=== PATIENT | male | born 1980 | race Caucasian/White ===

== ENCOUNTER 2023-05-28 07:36 | Day surgery (SDC) | payer OTHER, SELFPAY ==
[2022-12-12 10:57] VITALS: BMI 27.2
[2023-01-24 08:32] VITALS: BMI 27.9
[2023-05-28 08:49] VITALS: BP 127/81; PULSE 56; RESP 14; TEMP 36.3; O2SAT 99
--- NOTE | 2023-05-28 09:09 | WPDANESEPPF ---
Anes - Initial Pre Proc Eval Procedure: Operation Date: 05/28/23 10:00 Proposed Procedures p Esophagogastroduodenoscopy - Cb Herrmann MD s Colonoscopy - Cb Herrmann MD Date/Time: 05/28/23 09:09 Surgeon: Cb Herrmann MD Pre Op Diagnosis: Noninfective gastroenteritis and colitis unspecifi Patient Data Age: 43 Gender: M Height: 28.02 m Weight: 91.05 kg Last Vital Signs Temp 36.3 C L 05/28/23 08:49 Pulse 56 L 05/28/23 08:49 Resp 14 05/28/23 08:49 BP 127/81 05/28/23 08:49 Pulse Ox 99 05/28/23 08:49 O2 Del Method Room Air 05/28/23 08:49 Allergies Allergy/AdvReac Type Severity Reaction Status Date / Time No Known Allergies Allergy Verified 05/28/23 08:42 Home Medications Medication Instructions Recorded Confirmed Type trazodone 100 mg tablet 100 mg PO QHS #30 tabs 10/03/22 05/28/23 Rx valacyclovir 500 mg tablet 500 mg PO DAILY PRN cold sores 10/03/22 05/28/23 History (Valtrex) sildenafil 100 mg tablet 100 mg PO DAILY PRN sexual 11/01/22 05/28/23 Rx activity #18 tabs zolpidem 10 mg tablet 10 mg PO QHS #90 tabs 11/07/22 05/28/23 Rx bupropion HCl 150 mg tablet,12 hr 150 mg PO DAILY 04/18/23 05/28/23 History sustained-release (Wellbutrin SR) rizatriptan 10 mg tablet See Rx Instructions PO .COMPLEX 04/18/23 05/28/23 History atorvastatin 40 mg tablet 40 mg PO DAILY 05/10/23 05/28/23 History esomeprazole magnesium 40 mg 40 mg PO DAILY 05/10/23 05/28/23 History capsule,delayed release Patient hx anesthesia problems: none Family hx anesthesia problems: none Results Review: All pre-operative results and documents have been reviewed as part of the pre-operative evaluation. [facility] Past Medical History Medical History Chronic diarrhea Erectile dysfunction Family history of esophageal cancer Gas bloat syndrome History of skin cancer right shoulder blade Pure hypercholesterolemia, unspecified Surgical History Surgical History History of bilateral breast reduction surgery History of inguinal hernia repair History of tonsillectomy and adenoidectomy History of vasectomy Family History Family History Mother Heart disease Hypertension Hyperlipidemia Father Hypertension Malignant neoplasm of prostate Hyperlipidemia Sibling No problems noted. Other Skin cancer, basal cell Social History Social History Smoking status: Never smoker Second hand tobacco smoke exposure: No Alcohol intake: current Drinks per week: 1 Substance use: never Substance use type: does not use Lack of Transportation: No Lack of Food: Never True Current Housing: I Have Housing Concerned About Future Housing: No Difficulty Paying Gas/Electric Bills: No Difficulty Paying for Meds: No Currently Unemployed: No Education: Trade/Vocational Certificate Difficulty w/ Childcare or Family Care: No Living arrangements: with family Occupation/Education: occupation Gender identity (if verbalized by the patient): Male Sexual Orientation (if Verbalized by the Patient): Straight or Heterosexual Spiritual care concerns: No Agree to blood products: Yes Anes - Evaleah Final PreProcedure Day of Procedure 05/28/23 09:09 Patient weight: normal Heart: regular rate and rhythm Lungs: clear to auscultation Airway: Mallampati scale class II Neurological: alert and oriented Last oral intake: >/= 8 hours ASA classification: III Emergent: no Anesthetic plan: proceed Anesthesia type and monitoring: general GIVS and standard monitoring Results Review: All pre-operative results and documents have been reviewed as part of the pre-operative evaluation. Informed Consent: The patient's ane
[2023-05-28] MEDS: ONDANSETRON INJ 4 MG/2 ML VIAL IV PUSH (09:11)
[2023-05-28] MEDS: LACTATED RINGERS 1,000 ML 150 ML IV CONT (09:19)
--- NOTE | 2023-05-28 09:25 | WPDHPUPDATE1 ---
History and Physical Update Update Date/Time: 05/28/23 09:25 History and Physical has been reviewed, including an updated exam of the patient. There are NO changes in the patient's condition. Risks, benefits, and alternatives have been discussed and questions answered. Patient agrees to proceed with procedure.
[2023-05-28 10:03] VITALS: BP 126/77; PULSE 60; RESP 16; O2SAT 100
[2023-05-28 10:13] VITALS: BP 111/76; PULSE 55; RESP 16; O2SAT 100
[2023-05-28 10:23] VITALS: BP 127/87; PULSE 54; RESP 16; O2SAT 100
--- NOTE | 2023-05-28 10:42 | WPDANESPN ---
Anes - Prog Note Post-Op Date/Time: 05/28/23 10:42 Cardiovascular status: normal Respiratory status: normal Airway patency: baseline Mental status: baseline Post-Op hydration status: normal Vital Signs: Last Vital Signs Temp 36.3 C L 05/28/23 08:49 Pulse 55 L 05/28/23 10:13 Resp 16 05/28/23 10:13 BP 111/76 05/28/23 10:13 Pulse Ox 100 05/28/23 10:13 O2 Del Method Room Air 05/28/23 10:13 Pain Score (VAS): 0 Patient Feedback: Patient satisfied with anesthetic care.
--- NOTE | 2023-05-28 10:50 | SUR.PHASEII ---
1040 Pt dressed sitting in chair waiting for ride home. no complaints at this time.
== END 2023-05-28 11:01 | disposition home or self-care (01) ==
PROVIDERS: PCP Family Medicine Adolescent Medicine; Visit Provider Internal Medicine Gastroenterology
PROC: 0DJ08ZZ Inspection of Upper Intestinal Tract, Via Natural or Artificial Opening Endoscopic (ICD-10-PCS; CPT 43235; principal; 2023-05-28 10:00)
PROC: 0DJD8ZZ Inspection of Lower Intestinal Tract, Via Natural or Artificial Opening Endoscopic (ICD-10-PCS; CPT 45378; 2023-05-28 10:00)
DX: Z12.11 Encounter for screening for malignant neoplasm of colon (principal); D12.5 Benign neoplasm of sigmoid colon; D12.4 Benign neoplasm of descending colon; K58.9 Irritable bowel syndrome, unspecified; K20.90 Esophagitis, unspecified without bleeding; R14.0 Abdominal distension (gaseous)
CPT/HCPCS: 45385; 45380; 43239

== ENCOUNTER 2023-05-28 12:06 | Outpatient (NON) | payer OTHER, SELFPAY | END 2023-05-28 12:07 | disposition home or self-care (01) | PROVIDERS: PCP Family Medicine Adolescent Medicine; Visit Provider Internal Medicine Gastroenterology | DX: K21.9 Gastro-esophageal reflux disease without esophagitis (principal); K63.5 Polyp of colon; D12.5 Benign neoplasm of sigmoid colon | CPT/HCPCS: 88305 ==